=== PATIENT | female | born 1980 | race Caucasian/White ===

== ENCOUNTER 2020-03-12 18:28 | Day surgery (SDC) | payer OTHER ==
[2020-03-12 19:02] VITALS: BMI 34.1
[2020-03-12] MEDS ORDERED: Promethazine HCl 25 MG/ML VIAL IM SCH (20:15)
[2020-03-12] MEDS ORDERED: Morphine 10 MG/ML VIAL IM SCH (20:15)
[2020-03-12] MEDS ORDERED: hydrALAZINE 20 MG/ML VIAL SLOW IVP PRN (23:30)
--- NOTE | 2020-03-13 01:29 | PRG ---
DATE OF SERVICE: 03/12/2020 PRIMARY OB: Dr. Tu South. CHIEF COMPLAINT: Vaginal bleeding. HISTORY OF PRESENT ILLNESS: The patient is a 39-year-old G1, P0 female with an intrauterine at 36 weeks and 6 days, presenting with an episode of bleeding that soaked through her underwear and her pants. The patient was getting up to go to the bathroom when she felt this happen and came to the emergency room for evaluation. She also reports that she has been having some abdominal pains. She denies having any more bleeding since arriving at the hospital. In our discussion, the patient reports that she has been dealing with a hemorrhoid for the last couple weeks and has been using [id number] medication to help treat it. The patient denies fever, headache, cough, chest pain, shortness of breath, nausea, vomiting, diarrhea, or constipation. She has been experiencing hip pains with the . Again, reports vaginal bleeding per HPI. Denies other change in discharge. Denies urinary urgency or frequency. PAST MEDICAL HISTORY: History of PCOS; history of kidney failure; and hypertension, off medication. SURGICAL HISTORY: She has had surgery on her elbow, on her hands and feet. SOCIAL HISTORY: Denies drug, alcohol, or tobacco use. OB LABS: Blood type is O positive. Antibody screen is negative. RPR is nonreactive in the first and third trimester. HIV is nonreactive in the first and third trimester. Hepatitis B surface antigen is negative. She is rubella nonimmune. GC and chlamydia were negative. 1-hour Glucola is 120. REVIEW OF SYSTEMS: Per HPI. PHYSICAL EXAMINATION: VITAL SIGNS: Blood pressure 126/86, heart rate 104, respiratory rate 20, saturating 98% on room air, and temperature 98.9. GENERAL: She appears to be in no acute distress. She is alert, oriented, cooperative, and pleasant to interact with. HEAD: Normocephalic and atraumatic. LUNGS: Clear to auscultation bilaterally. HEART: Has regular rate and rhythm. ABDOMEN: Gravid, soft, nontender. EXTREMITIES: Nontender, nonedematous. : Vulva is without masses, lesions, or erythema. She has a little bit of blood on her perineum that seems to be coming from her rectum. She has a clot adhered to the external part of her anus, suggesting hemorrhoid as a cause for her bleeding. She has no blood staining or bleeding on her urethra or her vestibular region or vaginal region. On speculum exam, she has no bleeding evidence from the vagina and no pooling on Valsalva. Cervix is 1 cm on digital exam, thick, and high. heart tracing shows the fetus with a baseline in the 130s with moderate long-term variability, positive 15 x 15 accelerations, no decelerations. Tocometer showing some irritability. ASSESSMENT AND PLAN: The patient is a 39-year-old G1, P0 female with an intrauterine at 36 weeks and 6 days, presenting for vaginal bleeding that on physical exam has evidence suggesting that she has had bleeding from a hemorrhoid that has spontaneously resolved as the patient has no evidence of bleeding vaginally or from her urethra or vestibular region. This bleeding has now spontaneously resolved. Fetus has a category I tracing. The patient is being discharged home with instructions to follow up with her primary OB as scheduled. Job ID: [id number]
== END 2020-03-12 21:00 | disposition home or self-care (01) ==
LOC: L&D/OP 18:28
PROVIDERS: ATTEND Family Medicine
DX: O46.93 Antepartum hemorrhage, unspecified, third trimester (principal); O10.913 Unspecified pre-existing hypertension complicating pregnancy, third trimester; O09.513 Supervision of elderly primigravida, third trimester; Z3A.36 36 weeks gestation of pregnancy
CPT/HCPCS: 96372; 99283; J2270; J2550

== ENCOUNTER 2020-03-19 18:25 | Day surgery (SDC) | payer OTHER ==
[2020-03-19 19:17] VITALS: BP 121/74; TEMP 98.6; BMI 33.7
--- NOTE | 2020-03-19 19:17 | PDOC.LDHP ---
Labor and Delivery H&P Chief complaint: contractions HPI: 39 y/o G1 at 38w0d, patient of Dr. South, presents with ctx since yesterday that have gotten more frequent and painful today. Denies VB, LOF or decreased FM. Was reportedly 2cm in clinic this week. Was seen last week for bleeding hemorrhoids, no bleeding now. ROS neg for HEENT, cv, pulm, gi, gu, neuro, psych, skin, musculoskeletal or constitutional symptoms other than mentioned above. OB History Details: First Current complications: hypertension Past Medical History: CHTN, PCOS Current medications: pre- vitamins, other (tylenol) Previous surgical history: other (elbow) Allergies/Adverse Reactions: Allergies Allergy/AdvReac Type Severity Reaction Status Date / Time diphenhydramine HCl Allergy Unknown Verified 03/19/20 19:06 [From Benadryl] tramadol Allergy Unknown Verified 03/19/20 19:06 adhesive tape Allergy Rash Verified 03/19/20 19:06 Social history: none - Physical Exam Vital signs reviewed and normal: yes General: NAD, resting Lungs: nonlabored breathing Abdomen: gravid Extremeties: no edema FHT: category 1 (150s, mod variability, + accels, no decels) Bromide contractions every: 8 mins - Vaginal Exam cm dilated: 2 Effacement: 50% Station: -2 - Assessment 39 y/o G1 at 38w0d with no e/o active labor. status reassuring with reactive NST. - Plan -: D/c home with precautions. Advised to keep all appointments and stay well hydrated.
== END 2020-03-19 19:25 | disposition home or self-care (01) ==
LOC: L&D/OP 18:25
PROVIDERS: ATTEND Family Medicine
DX: O47.1 False labor at or after 37 completed weeks of gestation (principal); O10.913 Unspecified pre-existing hypertension complicating pregnancy, third trimester; O99.283 Endocrine, nutritional and metabolic diseases complicating pregnancy, third trimester; E28.2 Polycystic ovarian syndrome; Z3A.38 38 weeks gestation of pregnancy; Z88.5 Allergy status to narcotic agent; Z91.048 Other nonmedicinal substance allergy status; Z88.8 Allergy status to other drugs, medicaments and biological substances
CPT/HCPCS: 99282

== ENCOUNTER 2020-03-23 09:36 | Inpatient (IN) | payer OTHER ==
[2020-03-23 10:49] VITALS: BMI 34.2
[2020-03-23] MEDS ORDERED: Misoprostol 200 MCG TAB PR PRN (10:52)
[2020-03-23] MEDS ORDERED: Carboprost 250 MCG/ML AMP IM PRN (10:52)
[2020-03-23] MEDS ORDERED: Diphenoxylate HCl/Atropine Tablet PO PRN (10:52)
[2020-03-23] MEDS ORDERED: Methylergonovine 0.2 MG/ML VIAL IM PRN (10:52)
[2020-03-23] MEDS ORDERED: Butorphanol Tartrate 1 MG/ML VIAL SLOW IVP PRN (10:52)
[2020-03-23] MEDS ORDERED: Ibuprofen 800 MG TAB PO PRN (10:52)
[2020-03-23] MEDS ORDERED: Ondansetron PF 4 MG/2 ML Vial IVP PRN ×2 (10:52→15:13)
[2020-03-23] MEDS ORDERED: HYDROcodone/Acetaminophen 5/325 mg Tablet PO PRN (10:52)
[2020-03-23] MEDS ORDERED: Promethazine HCl 25 MG/ML VIAL IM PRN ×2 (10:52→15:13)
[2020-03-23] MEDS ORDERED: hydrALAZINE 20 MG/ML VIAL SLOW IVP PRN (10:52)
[2020-03-23] MEDS ORDERED: NS / Oxytocin 40 units/1000ml 1,000 ML IV PRN (10:52)
[2020-03-23] MEDS ORDERED: Lidocaine 1% (PF) 30 ML VIAL SC PRN (10:52)
[2020-03-23] MEDS ORDERED: NS w/ Oxytocin 10 units 500 ML IV SCH ×2 (11:00)
[2020-03-23 11:13] LABS: Hemoglobin 12.6 g/dL (12.0-16.0); Mean Corpuscular HGB CONC 34.7 g/dL (32.0-36.0); Mean Corpuscular Hemoglobin 30.1 pg (27.0-31.0); Mean Corpuscular Volume 86.7 fL (78.0-98.0); Platelet Count 166 thou/uL (130-400); RBC Distribution Width 12.6 % (11.5-14.5); White Blood Cell (WBC) Count 10.4 thou/uL (4.8-10.8)
[2020-03-23 12:17] LABS: Syphilis Antibody Nonreactive (Nonreactive); Syphilis Antibody Index 0.03 S/CO (<1.00 Non-Reactive)
[2020-03-23 12:18] LABS: HBSAg Index 0.16 S/CO (0-0.99); Hep B Surf Ag Non-Reactive S/CO (NonReactive)
[2020-03-23] MEDS: Lactated Ringer's 1,000 ML IV SCH ×2 (13:45→19:04)
[2020-03-23] MEDS ORDERED: Fentanyl 4 mcg/Bup 0.1% Cadd 100 ML ONE ×2 (14:44→22:12)
[2020-03-23] MEDS ORDERED: EPHEDRINE 25 MG/5 ML SYRINGE SLOW IVP PRN (15:13)
[2020-03-23] MEDS ORDERED: Lactated Ringer's 500 ML IV PRN (15:13)
[2020-03-23] MEDS ORDERED: Naloxone HCl 0.4 mg/ml Vial IVP PRN ×2 (15:13)
[2020-03-23] MEDS ORDERED: Acetaminophen 325 MG TAB PO PRN (15:13)
[2020-03-23] MEDS ORDERED: Communication Order-Pharmacy FS SCH (15:15)
[2020-03-23 17:35] LABS: SARS-CoV-2 MS2 Positive; SARS-CoV-2 N Gene Negative; SARS-CoV-2 S Gene Negative; SARS-CoV-2 by NAA Not Detected (NotDetected); SARS-CoV-2 orf1ab Negative
[2020-03-23] MEDS ORDERED: Calcium Carbonate 500 MG ChewTAB PO PRN (21:39)
[2020-03-24] MEDS: Lactated Ringer's 1,000 ML IV SCH (00:56)
[2020-03-24] MEDS ORDERED: Ampicillin 2 GM VIAL ONE (03:11)
[2020-03-24] MEDS ORDERED: Ampicillin 2 GM in Sodium Chloride 0.9% 100 ML IVPB SCH ×2 (03:30→10:15)
[2020-03-24] MEDS ORDERED: Fentanyl 4 mcg/Bup 0.1% Cadd 100 ML ONE (04:03)
[2020-03-24] MEDS ORDERED: Lidocaine 2% 10 ML INJ ONE (05:22)
[2020-03-24] MEDS ORDERED: Oxytocin 10 UNITS/ML VIAL ONE ×2 (05:34→05:55)
[2020-03-24] MEDS ORDERED: Ondansetron PF 4 MG/2 ML Vial ONE (05:34)
[2020-03-24] MEDS ORDERED: Dexamethasone 4 mg/ml Vial ONE (05:34)
[2020-03-24] MEDS ORDERED: Naloxone HCl 0.4 mg/ml Vial IV PRN (05:52)
[2020-03-24] MEDS ORDERED: Ketorolac Tromethamine 30 MG/ML VIAL IVP PRN (05:52)
[2020-03-24] MEDS ORDERED: Promethazine HCl 25 MG/ML VIAL IM PRN ×2 (05:52→10:03)
[2020-03-24] MEDS ORDERED: Promethazine HCl 25 MG SUPP PR PRN (05:52)
[2020-03-24] MEDS ORDERED: Ondansetron PF 4 MG/2 ML Vial IVP PRN ×2 (05:52→10:03)
[2020-03-24] MEDS ORDERED: Naloxone HCl 0.4 mg/ml Vial IVP PRN ×2 (05:52)
[2020-03-24] MEDS ORDERED: ePHEDrine 50 MG/ML VIAL ONE (05:55)
[2020-03-24] MEDS ORDERED: Communication Order-Pharmacy FS SCH (06:00)
--- NOTE | 2020-03-24 06:39 | PDOC.OPDEL ---
OB Operative/Delivery Note Delivery Dr/Surgeon: Tu South MD Assist: Michelle Casillas DO, PGY-2 Pre-Delivery Diagnosis: arrest of dilation Procedure/Post Delivery Dx: primary low transverse CS Weeks gestation: 38 (38.5) Anesthesia: epidural - Findings A Sex: female Weight: 3.651 kg - 1 min: 8 - 5 min: 9 - Additional Findings/Plan Placenta delivered: manual removal findings: low transverse hysterotomy without extension Compilations/Other Findings: Date of Procedure: 03/24/2020 Attending Primary Surgeon: Tu South MD Robotype Operator Surgeon: Michelle Casillas DO, PGY-2 Procedure: Primary low transverse caesarean section Preoperative Diagnosis: 1) Term intrauterine at 38.5 wga 2) Chorioamnionitis 3) Failure of dilation 4) Advanced Maternal Age Postoperative Diagnosis: 1)same as above Anesthesia: epidural Indications: The patient is a 39 year old female at 38.5 weeks gestation who presents for a primary scheduled for failure of dilation. Procedure in Detail: After risks, benefits, and alternatives were explained to the patient, she gave informed consent. Pre-operative antibiotics included Cefazolin 2 gram IV, Ampicillin, and Gentamicin. The patient was taken to the operating room and epidural anesthesia was bolused. She was placed in the supine position with a left tilt and prepped and draped in usual sterile fashion. A Pfannenstiel incision was made with a scalpel and carried down to the level of the fascia which was sharply nicked. The fascial cut was extended bilaterally with Urrutia sissors. The inferior and superior edges of the cut fascial edges were elevated with Marylou clamps and the underlying rectus muscles were sharply and bluntly dissected free. The recti were divided digitally and retracted manually. The peritoneum was entered bluntly and retracted manually. Bladder blade was placed. The uterus was entered in the midline with the scalpel. Clear fluid was seen. The hysterotomy was extended manually. The was noted to be vertex and was easily delivered by fundal pressure. Mouth and nares were bulb suctioned. Cord clamped and cut and grossly normal female was handed to waiting nurse. Cord blood was obtained. Placenta was manually extracted, found to be intact with 3 vessel cord and sent for pathology. The uterus was externalized and the endometrium was curetted with a dry lap. The bladder blade was replaced and the uterus was closed with a running locking 1-Monocryl suture followed by a three figure of 8 sutures using 0-Vicryl. Following this hemostasis was noted. The abdomen was irrigated with saline and suctioned free of clots. Sepra film was then placed. The uterus was internalized and the hysterotomy was again noted to be hemostatic. The peritoneum was closed with a running non-locking 3-0 Vicryl suture. The fascia was closed with a running non- locking 0-PDS suture. The subcutaneous tissue was irrigated and there were no bleeders. The subcutaneous tissue was closed with simple interrupted 3-0 Vicryl suture.The skin was approximated with patricio and a pressure dressing was placed. All counts were correct. The patient tolerated the procedure well and was taken to the recovery room in stable condition. Quantitative Blood Loss: 935 ml Complications: None Specimens: Cord blood sent to lab for blood type; Placenta sent to pathology Findings: Grossly normal female with Apgars of 8 and 9. Grossly normal placenta with 3 vessel cord. Drains: Maher to gravity draining clear urine Post delivery plan: routine recovery
[2020-03-24] MEDS ORDERED: Ketorolac Tromethamine 30 MG/ML VIAL ONE (07:26)
[2020-03-24] MEDS ORDERED: L&D-Morphine 4 MG/ML VIAL SLOW IVP PRN (07:47)
[2020-03-24] MEDS ORDERED: Ondansetron HCl/PF 4 MG/2 ML Vial IVP PRN (07:47)
[2020-03-24] MEDS ORDERED: Meperidine HCl/PF 25 MG/ML VIAL SLOW IVP PRN (07:47)
[2020-03-24] MEDS ORDERED: HYDROmorphone 2 MG/ML VIAL SLOW IVP PRN (07:47)
[2020-03-24] MEDS ORDERED: Meperidine HCl/PF 25 MG/ML VIAL ONE (07:57)
[2020-03-24] MEDS ORDERED: Ketorolac Tromethamine 30 MG/ML VIAL IVP SCH (08:00)
[2020-03-24] MEDS ORDERED: Bisacodyl 10 MG SUPP PR PRN (10:03)
[2020-03-24] MEDS ORDERED: diphenhydrAMINE 25 MG CAP PO PRN (10:03)
[2020-03-24] MEDS ORDERED: Adacel (T-DAP) 0.5 ML SYRINGE IM ONE (10:03)
[2020-03-24] MEDS ORDERED: Lanolin Ointment 7 GM TUBE TOP PRN (10:03)
[2020-03-24] MEDS ORDERED: hydrALAZINE 20 MG/ML VIAL SLOW IVP PRN (10:03)
[2020-03-24] MEDS ORDERED: Meperidine HCl/PF 25 MG/ML VIAL IM PRN (10:03)
[2020-03-24] MEDS ORDERED: NS / Oxytocin 40 units/1000ml 1,000 ML IV SCH (10:03)
[2020-03-24] MEDS: Prenatal Vitamin 1 TAB PO SCH (10:36)
[2020-03-24] MEDS: Ketorolac Tromethamine 30 MG/ML VIAL IVP SCH ×2 (13:35→20:01)
[2020-03-24] MEDS: Ferrous Sulfate 325 MG TAB PO SCH (21:00)
[2020-03-24] MEDS: Docusate Calcium (SURFAK) 240 MG CAP PO SCH (21:00)
[2020-03-25] MEDS: Ketorolac Tromethamine 30 MG/ML VIAL IVP SCH ×2 (02:00→10:41)
[2020-03-25 05:44] LABS: Hemoglobin 9.1 g/dL (12.0-16.0); Mean Corpuscular HGB CONC 35.4 g/dL (32.0-36.0); Mean Corpuscular Hemoglobin 31.2 pg (27.0-31.0); Mean Corpuscular Volume 88.2 fL (78.0-98.0); Mean Platelet Volume 8.9 fL (7.4-10.4); Platelet Count 140 thou/uL (130-400); RBC Distribution Width 12.5 % (11.5-14.5); Red Blood Cell (RBC) Count 2.91 mill/uL (4.20-5.40); White Blood Cell (WBC) Count 9.3 thou/uL (4.8-10.8)
--- NOTE | 2020-03-25 09:08 | PRG ---
DATE OF SERVICE: 03/25/2020 PRIMARY OB: Tu South MD SUBJECTIVE: The patient is postop day 1, status post primary lower transverse section for arrest of labor complicated by chorioamnionitis. The patient reports that she is tolerating p.o., voiding on her own, the Maher was removed this morning and is tolerating a diet. She reports that she is starting to feel some pain this morning. PHYSICAL EXAMINATION: VITAL SIGNS: Blood pressure is 117/71, temperature 98, pulse of 92, and respiratory rate of 18. GENERAL: She appears to be in no acute distress. She is alert, oriented, cooperative, and pleasant to interact with. HEENT: Head is normocephalic and atraumatic. ABDOMEN: Fundus is firm and appropriately tender. Incision is clean, dry, and intact with patricio. EXTREMITIES: Nontender and nonedematous. LABORATORY DATA: Her post delivery hemoglobin 9.1, hematocrit 25.7, and platelets of 140,000. ASSESSMENT AND PLAN: The patient is postop day 1, status post a primary lower transverse section. Her antibiotics have been discontinued now 24 hours post delivery. The patient remains afebrile. White count is within normal limits. We will continue in-house care. Anticipate discharge home on Friday. Job ID: [id number]
[2020-03-25] MEDS: Docusate Calcium (SURFAK) 240 MG CAP PO SCH ×2 (09:18→21:44)
[2020-03-25] MEDS: Simethicone Chewable 80 MG TAB PO PRN (09:18)
[2020-03-25] MEDS: Prenatal Vitamin 1 TAB PO SCH (09:18)
[2020-03-25] MEDS: Ferrous Sulfate 325 MG TAB PO SCH ×2 (09:18→21:44)
[2020-03-25] MEDS: HYDROcodone/Acetaminophen 5/325 mg Tablet PO PRN ×4 (09:18→21:44)
[2020-03-25] MEDS: Ibuprofen 800 MG TAB PO SCH ×2 (13:14→21:44)
--- NOTE | 2020-03-26 00:17 | PDOC.PP ---
Post Progress Note Post Day #: POD2 Subjective: Resting comfortably. Voices no complaints. PO intake tolerated: yes Flatus: yes Ambulation: yes Vital Signs (12 hours) Temp Pulse Resp BP Pulse Ox 03/25/20 23:35 98.6 F 98 18 125/81 97 03/25/20 19:40 98.6 F 95 18 138/81 97 03/25/20 16:23 98.4 F 84 18 139/80 03/25/20 12:50 98.3 F 104 H 18 136/86 Weight Weight 93.44 kg - Physical Examination General: NAD Respiratory: non-labored breathing Abdominal: no distention Skin: CS incision dry & intact Neurological: no gross focal deficits Psychiatric: normal affect Result Diagrams: 03/25/20 05:08 Additional Labs: Post Labs Hep Bs Antigen Non-Reactive S/CO (NonReactive) 03/23/20 11:00 Blood Type O POSITIVE 03/23/20 11:32 - Assessment/Plan Doing well. Remains AF of ABX. Advance diet, ambulate.
[2020-03-26] MEDS: HYDROcodone/Acetaminophen 5/325 mg Tablet PO PRN ×6 (02:44→20:31)
[2020-03-26] MEDS: Ibuprofen 800 MG TAB PO SCH ×3 (05:29→21:31)
[2020-03-26] MEDS: Prenatal Vitamin 1 TAB PO SCH (08:03)
[2020-03-26] MEDS: Docusate Calcium (SURFAK) 240 MG CAP PO SCH ×2 (08:03→21:30)
[2020-03-26] MEDS: Ferrous Sulfate 325 MG TAB PO SCH ×2 (12:06→21:29)
[2020-03-26] MEDS: Hydrocortisone 1% Cream 30 GM TUBE TOP SCH ×2 (13:58→21:34)
[2020-03-26] MEDS: Bacitracin 1 PK TOP SCH ×2 (16:10→21:31)
[2020-03-27] MEDS: HYDROcodone/Acetaminophen 5/325 mg Tablet PO PRN ×3 (01:19→12:01)
[2020-03-27] MEDS: Ibuprofen 800 MG TAB PO SCH (05:28)
[2020-03-27] MEDS: Prenatal Vitamin 1 TAB PO SCH (08:05)
[2020-03-27] MEDS: Ferrous Sulfate 325 MG TAB PO SCH (08:09)
[2020-03-27] MEDS: Bacitracin 1 PK TOP SCH (08:09)
[2020-03-27] MEDS: Simethicone Chewable 80 MG TAB PO PRN (08:09)
[2020-03-27] MEDS: Docusate Calcium (SURFAK) 240 MG CAP PO SCH (08:09)
[2020-03-27] MEDS: Hydrocortisone 1% Cream 30 GM TUBE TOP SCH (08:09)
[2020-03-27 09:02] VITALS: BP 131/73; TEMP 98
== END 2020-03-27 15:15 | disposition home or self-care (01) | DRG 786 ==
LOC: L&D 09:36 → 3SW 03-24 09:32
PROVIDERS: ADMIT Family Medicine; ATTEND Family Medicine
PROC: 10D00Z1 Extraction of Products of Conception, Low, Open Approach (ICD-10-PCS; principal; 2020-03-24)
DX: O62.0 Primary inadequate contractions (principal); O41.1230 Chorioamnionitis, third trimester, not applicable or unspecified; Z20.828 Contact with and (suspected) exposure to other viral communicable diseases; Z88.8 Allergy status to other drugs, medicaments and biological substances; Z88.5 Allergy status to narcotic agent; Z3A.38 38 weeks gestation of pregnancy; Z37.0 Single live birth
CPT/HCPCS: 36415; 51702; 85027; 86780; 86850; 86900; 86901; 87340; 87635; 88307; J0290; J0690; J1100; J1580; J1885; J2175; J2270; J2405; J2590; J3490; U0003

== ENCOUNTER 2020-06-27 08:11 | Outpatient (CLI) | payer OTHER ==
[2020-06-27 16:48] LABS: #Eosinphils 0.2 10x3/uL (0.0-0.5); #Monocytes 0.5 10x3/uL (0.0-1.1); #Neutrophils 5.2 10x3/uL (1.5-8.4); %Basophils 0.4 % (0.0-2.0); %Eosinophils 2.3 % (0.0-6.0); %Lymphocytes 29.6 % (18.0-47.0); %Neutrophils 61.5 % (40.0-75.0); Hemoglobin 11.9 g/dL (12.0-16.0); Mean Corpuscular HGB CONC 33.2 G/DL (32.0-36.0); Mean Corpuscular Volume 87.3 fl (80.0-100.0); Mean Platelet Volume 10.9 fl (7.4-10.4); Platelet Count 287 10x3/uL (130-400); RBC Distribution Width 14.3 % (11.5-14.5); White Blood Cell (WBC) Count 8.4 10x3/uL (4.5-11.0)
[2020-06-27 17:00] LABS: Anion Gap 15 mmol/L (10-20); BUN (Urea Nitrogen) 15 mg/dL (7.0-18.7); Calc. Creatinine Clearance 0 mL/min (70-130); Calcium 9.3 mg/dL (7.8-10.44); Carbon Dioxide 23 mmol/L (22-29); Chloride 103 mmol/L (98-107); Glucose 111 mg/dL (70-105); Potassium 3.6 mmol/L (3.5-5.1); Sodium 137 mmol/L (136-145)
[2020-06-28 06:06] LABS: SARS-CoV-2 MS2 Positive; SARS-CoV-2 N Gene Negative; SARS-CoV-2 S Gene Negative; SARS-CoV-2 by NAA Not Detected (NotDetected); SARS-CoV-2 orf1ab Negative
== END 2020-06-27 08:12 | disposition home or self-care (01) ==
LOC: LABBT 08:11
PROVIDERS: ATTEND Specialist
DX: Z01.812 Encounter for preprocedural laboratory examination (principal); K42.9 Umbilical hernia without obstruction or gangrene; Z20.822 Contact with and (suspected) exposure to COVID-19
CPT/HCPCS: 80048; 85025; 87635; U0003

== ENCOUNTER 2020-06-30 05:59 | Day surgery (SDC) | payer OTHER ==
--- NOTE | 2020-06-28 12:19 | HP ---
HISTORY OF PRESENT ILLNESS: Geraldine Braun is a 39-year-old female, followed by [facility] physicians, has an umbilical hernia. She is at 33 BMI, 65 inches, 203 pounds. Plan is for robot mesh repair outpatient. She is allergic to Ultram, which causes hives as does Benadryl. We will encourage her to take Tylenol and ibuprofen for pain, resorting to Tylenol No. 3 if necessary. She has a 2-month-old and has pain with her mobility and lifting. She only takes ibuprofen, although her primary care physician is looking into treatment for her hypertension newly diagnosed. ALLERGIES: BENADRYL AND TRAMADOL. SOCIAL HISTORY: Tobacco none. Alcohol rarely. MEDICATIONS: Ibuprofen. PAST SURGICAL HISTORY: C-sections, hand surgery. REVIEW OF SYSTEMS: Noncontributory. FAMILY HISTORY: Noncontributory. PHYSICAL EXAMINATION: NEUROLOGIC: Intact. HEAD, EARS, EYES, NOSE, AND THROAT: Unremarkable. LYMPHATIC: No lymphadenopathy in neck, axilla, or groins. LUNGS: Clear to auscultation. CARDIAC: Regular rate and rhythm without murmur or gallop. ABDOMEN: Soft, nontender. Umbilical hernia present on Valsalva. EXTREMITIES: No ankle edema. ASSESSMENT: Umbilical hernia. PLAN: Robot mesh repair as outpatient. She understands the risks and benefits; risks of infection, bleeding, reoperation, recurrence of hernia, and consents. She has been instructed that she should avoid lifting over 25 pounds for 4 weeks postoperatively. Job ID: [id number]
[2020-06-28 13:28] VITALS: BMI 33.8
[2020-06-30] MEDS ORDERED: Ketorolac Tromethamine 30 MG/ML VIAL ONE ×2 (06:29→09:39)
[2020-06-30] MEDS ORDERED: Acetaminophen 500 MG TAB ONE (06:29)
[2020-06-30] MEDS ORDERED: Midazolam HCl 2 mg/2 ml Vial ONE (06:41)
[2020-06-30] MEDS ORDERED: Fentanyl 100 MCG/2 ML VIAL ONE ×4 (06:41→10:13)
[2020-06-30] MEDS ORDERED: Scopolamine 1.5 mg/72 hour Patch ONE (06:41)
[2020-06-30] MEDS ORDERED: Lidocaine 2% w/Epinephrine 1:200K 20 ML VIAL ONE (06:44)
[2020-06-30] MEDS ORDERED: Bupivacaine 0.25% HCL 30 ML VIAL ONE (06:44)
--- NOTE | 2020-06-30 09:11 | OP ---
DATE OF PROCEDURE: 06/30/2020 PREOPERATIVE DIAGNOSIS: Umbilical hernia related to recent . POSTOPERATIVE DIAGNOSIS: Umbilical hernia related to recent . PROCEDURE PERFORMED: Robot repair of umbilical hernia 2 cm defect with 8 cm mesh reinforcement. ANESTHESIA: General. No Maher used. Local 0.5% Marcaine 30 mL mixed with 1% Xylocaine with epinephrine 20 mL. DESCRIPTION OF PROCEDURE: The patient was taken to the operating room, where under general anesthesia, abdomen was clipped of hair, prepared with ChloraPrep and draped in routine fashion. Left subxiphoid incision was made and pneumoperitoneum to 15 mmHg was obtained with a Veress needle, replaced with an 11 balloon port and video laparoscope inserted. Bilateral far lateral subcostal incision made, an 8 mm ports placed. The robot was docked, positioned, and robot hernia repair undertaken. The patient had a defect with incarcerated preperitoneal fat, which was taken down along with the hernia sac excised. Fascial defect identified, closed with continuous suture #0 V-Loc suture to and fro securing the mesh with this suture and positioned it with the coated visceral side against the viscera reducing pneumoperitoneum to 9 mmHg securing the mesh circumferentially with continuous suture of #2-0 V-Loc suture. Once this was completed, all sutures were removed, good hernia repair appreciated. Pneumoperitoneum and all instruments removed after good hemostasis assured. Left subxiphoid fascia was approximated with 0 Vicryl UR needle, and skin incisions were approximated with subdermal 4-0 Monocryl and [place] glue applied. The patient tolerated the procedure well. Job ID: [id number]
[2020-06-30] MEDS ORDERED: PROPOFOL 200 MG/20 ML VIAL ONE (09:39)
[2020-06-30] MEDS ORDERED: Rocuronium Bromide 10 MG/ML (10ML VIAL) ONE (09:39)
[2020-06-30] MEDS ORDERED: Dexamethasone 20 MG/5 ML VIAL ONE (09:39)
[2020-06-30] MEDS ORDERED: Ondansetron PF 4 MG/2 ML Vial ONE (09:39)
[2020-06-30] MEDS ORDERED: Succinylcholine 200 MG/10 ml SYRINGE FS ONE (09:39)
[2020-06-30] MEDS ORDERED: Lidocaine 1% PF 5 ML VIAL ONE (09:39)
[2020-06-30] MEDS ORDERED: HYDROcodone/Acetaminophen 5/325 mg Tablet ONE (11:49)
== END 2020-06-30 12:05 | disposition home or self-care (01) ==
LOC: SDC 05:59
PROVIDERS: ATTEND Specialist
PROC: 0WUF4JZ Supplement Abdominal Wall with Synthetic Substitute, Percutaneous Endoscopic Approach (ICD-10-PCS; principal; 2020-06-30)
DX: K42.9 Umbilical hernia without obstruction or gangrene (principal); Z88.5 Allergy status to narcotic agent; Z88.8 Allergy status to other drugs, medicaments and biological substances; Z91.048 Other nonmedicinal substance allergy status; T45.0X5A Adverse effect of antiallergic and antiemetic drugs, initial encounter; I10 Essential (primary) hypertension
CPT/HCPCS: 96374; 96375; C1781; J0690; J1100; J1885; J2250; J2405; J2704; J3010; S0020

== ENCOUNTER 2020-10-18 10:42 | Outpatient (CLI) | payer OTHER | END 2020-10-18 10:43 | disposition home or self-care (01) | LOC: NM 10:42 | PROVIDERS: ATTEND Specialist | DX: R10.84 Generalized abdominal pain (principal); K86.89 Other specified diseases of pancreas | CPT/HCPCS: 78215; A9541 ==

== ENCOUNTER 2020-11-15 09:38 | Outpatient (CLI) | payer OTHER | END 2020-11-15 09:39 | disposition home or self-care (01) | LOC: ULT 09:38 | PROVIDERS: ATTEND Student in an Organized Health Care Education/Training Program | DX: R22.1 Localized swelling, mass and lump, neck (principal) | CPT/HCPCS: 76536 ==

== ENCOUNTER 2021-12-05 07:33 | Outpatient (CLI) | payer OTHER | END 2021-12-05 07:34 | disposition home or self-care (01) | LOC: BICULT 07:33 | PROVIDERS: ATTEND Student in an Organized Health Care Education/Training Program | DX: R10.11 Right upper quadrant pain (principal); R19.7 Diarrhea, unspecified | CPT/HCPCS: 76705 ==

== ENCOUNTER 2022-01-30 07:33 | Outpatient (CLI) | payer OTHER | END 2022-01-30 07:34 | disposition home or self-care (01) | LOC: NM 07:33 | PROVIDERS: ATTEND Physician Assistant Medical | DX: R10.11 Right upper quadrant pain (principal); K52.9 Noninfective gastroenteritis and colitis, unspecified; K21.9 Gastro-esophageal reflux disease without esophagitis; R63.4 Abnormal weight loss | CPT/HCPCS: 78227; A9537 ==

== ENCOUNTER 2022-11-21 18:00 | Outpatient (CLI) | payer OTHER | END 2022-11-21 18:01 | disposition home or self-care (01) | LOC: SLEEPLAB 18:00 | PROVIDERS: ATTEND Student in an Organized Health Care Education/Training Program | DX: G47.33 Obstructive sleep apnea (adult) (pediatric) (principal); R53.83 Other fatigue; R51.9 Headache, unspecified; E66.9 Obesity, unspecified; I10 Essential (primary) hypertension | CPT/HCPCS: 95800 ==